=== PATIENT | male | born 1995 | race Caucasian/White ===

== ENCOUNTER 2017-02-21 00:28 | Inpatient (IN) | payer OTHER ==
[~2017-02-21] VITALS: Ht 160 cm; Wt 53.1 kg
[2017-02-21 03:35] LABS: CALCIUM 9.7 mg/dL (8.5-10.1); CARBON DIOXIDE 31.4 mmol/L (21-32); CHLORIDE SERUM 100 mmol/L (98-107); CREATININE SERUM 0.8 mg/dL (0.7-1.3); GFR1 > 60 mL/min; GLUCOSE SERUM 121 mg/dL (74-106); POTASSIUM SERUM 3.4 mmol/L (3.5-5.1); SODIUM SERUM 140 mmol/L (136-145)
[2017-02-21 03:36] LABS: BASOPHIL % 0 % (0-2); PLATELET COUNT 353 x10^3mcL (130-400); RED CELL DISTRIBUTION WIDTH 13.3 % (11.5-14.5)
[2017-02-21 03:39] LABS: ALBUMIN 4.6 g/dL (3.4-5.0); ALKALINE PHOSPHATASE 104 U/L (46-116); ALT/SGPT 31 U/L (16-63); AMYLASE 71 U/L (25-115); AST/SGOT 20 U/L (15-37); BILIRUBIN TOTAL 0.85 mg/dL (0.20-1.00); LIPASE 94 IU/L (73-393); TOTAL PROTEIN, SERUM 7.7 g/dL (6.4-8.2)
[2017-02-21 05:51] LABS: microscopic required? YES; urine erythrocyte TRACE (NEGATIVE)
[2017-02-21 06:10] LABS: AMPHETAMINE QUAL UR NONE DETECTED (NEG <=1000)
[2017-02-21 06:35] VITALS: BP 113/65
[2017-02-21 06:55] LABS: CHOLESTEROL/HDL RATIO 3.2
[2017-02-21 07:03] LABS: FREE T4 1.16 ng/dL (0.76-1.46); FREE THYROXINE INDEX 2.5 ug/dL (1.4-4.5); T4(THYROXINE) 7.5 ug/dL (4.7-13.3)
[2017-02-21 07:12] LABS: T3 TOTAL 1.04 ng/mL
[2017-02-21 10:04] VITALS: BP 100/55
[2017-02-21 12:57] VITALS: BP 99/67
[2017-02-21 18:12] VITALS: BP 101/69
[2017-02-21 20:44] VITALS: BP 101/55
[2017-02-22 05:32] VITALS: BP 99/55
[2017-02-22 07:26] LABS: CALCIUM 8.8 mg/dL (8.5-10.1); CARBON DIOXIDE 29.3 mmol/L (21-32); CHLORIDE SERUM 103 mmol/L (98-107); CREATININE SERUM 0.8 mg/dL (0.7-1.3); GFR1 > 60 mL/min; GLUCOSE SERUM 93 mg/dL (74-106); MAGNESIUM 1.5 mg/dL (1.8-2.4); PHOSPHOROUS 4.1 mg/dL (2.5-4.9); POTASSIUM SERUM 3.7 mmol/L (3.5-5.1); SODIUM SERUM 141 mmol/L (136-145)
[2017-02-22 08:49] LABS: BASOPHIL % 0.4 % (0-2); PLATELET COUNT 274 x10^3mcL (130-400); RED CELL DISTRIBUTION WIDTH 13.8 % (11.5-14.5)
[2017-02-22 09:43] VITALS: BP 99/55
[2017-02-22 10:22] VITALS: BP 103/57
[2017-02-22] MEDS ORDERED: NORCO1 TA2 PO (14:51)
[2017-02-22] MEDS ORDERED: COL100 PO (14:51)
== END 2017-02-22 16:30 | disposition home or self-care (01) | DRG 341 ==
LOC: ED 00:28 → DU 05:02 → MU 02-22 14:30
PROVIDERS: Emergency Medicine; Surgery; ADMIT Family Medicine
PROC: 0DTJ4ZZ Resection of Appendix, Percutaneous Endoscopic Approach (ICD-10-PCS; principal; 2017-02-21 10:45)
DX: K35.80 Unspecified acute appendicitis (principal); N17.0 Acute kidney failure with tubular necrosis; E87.6 Hypokalemia; E83.42 Hypomagnesemia
CPT/HCPCS: 80307; 83880; 84439; G0480; J0690; J1956; J2250; J2270; J2405; J2543; J3010; J3490; J7030